=== PATIENT | male | born 1975 | race African-American/Black ===

== ENCOUNTER 2019-05-23 07:50 | Emergency (ER) | payer SELFPAY ==
[~2019-05-23] VITALS: Ht 182.9 cm; Wt 77.0 kg
[2019-05-23 07:59] VITALS: BP 125/92
[2019-05-23] MEDS ORDERED: KETOROLAC 60MG/2ML VIAL IM ONE (08:30)
== END 2019-05-23 08:28 | disposition home or self-care (01) ==
LOC: ER 07:50
DX: K64.4 Residual hemorrhoidal skin tags (principal); Z88.6 Allergy status to analgesic agent
CPT/HCPCS: 96372; 99283; J1885

== ENCOUNTER 2019-10-30 21:33 | Emergency (ER) | payer BC ==
[~2019-10-30] VITALS: Ht 182.9 cm; Wt 82.0 kg
[2019-10-30] MEDS ORDERED: VISCOUS LIDOCAINE 2% 15 ML UDC PO STA (22:21)
[2019-10-30] MEDS ORDERED: MAGNESIUM/ALUMINUM HYDROXIDE/SIMETHICONE 30ML UDC PO STA (22:21)
[2019-10-30] MEDS ORDERED: KETOROLAC 30MG/ML VIAL IM ONE (22:30)
[2019-10-30 22:56] LABS: CHLORIDE 109 mEq/L (98-107)
[2019-10-30 23:00] LABS: BASOPHILS % 0.5 % (0.0-2.0); EOSINOPHILS % 1.3 % (0.0-5.0); HEMATOCRIT. 40.5 % (42.0-52.0); HEMOGLOBIN. 13.7 g/dL (14.0-18.0); LYMPHOCYTES % 18.5 % (20.0-50.0); MEAN CORPUSCULAR HEMOGLOBIN 29.4 pg (28.0-32.0); MEAN CORPUSCULAR VOLUME 87.2 fL (80.0-94.0); MEAN PLATELET VOLUME 8.1 fl (7.4-10.4); MONOCYTES % 4.3 % (2.0-8.0); NEUTROPHILS % 75.4 % (40.0-76.0); PLATELET 252 x1000/uL (130-400); RED BLOOD CELL COUNT 4.65 mill/uL (4.7-6.1); RED CELL DISTRIBUTION WIDTH 14.8 % (11.6-14.6)
[2019-10-31 00:08] VITALS: BP 132/58
== END 2019-10-31 00:08 | disposition home or self-care (01) ==
LOC: ER 21:33
DX: G43.909 Migraine, unspecified, not intractable, without status migrainosus (principal); K21.9 Gastro-esophageal reflux disease without esophagitis; Z98.890 Other specified postprocedural states; Z88.6 Allergy status to analgesic agent
CPT/HCPCS: 36415; 74176; 80053; 83690; 85025; 96372; 99284; J1885